=== PATIENT | female | born 1985 | race Caucasian/White ===

== ENCOUNTER 2016-10-04 02:45 | Inpatient (IN) | payer OTHER ==
[2016-10-04] VITALS (15 sets, daily range): BP systolic 99–128; BP diastolic 52–76
[~2016-10-04] VITALS: Ht 149.9 cm; Wt 57.6 kg
[~2016-10-04 02:45] MED LIST: ENDOCET 5-3251 EACH PO; IBUPROFEN800 MG PO; LEVOTHYROXINE88 MCG PO; PRENATAL TABLE1 EACH PO; SYNTHROID88 MCG PO
[2016-10-04 04:19] LABS: EOSINOPHIL (%) 1.7 % (0-5); EOSINOPHIL COUNT 0.1 K/uL (0-0.3); HEMATOCRIT 38.2 % (36.0-46.0); IMMATURE GRANULOCYTE COUNT 0.1 K/uL; INSTRUMENT ABS NEUTROPHIL CT 4.5 K/uL; LYMPHOCYTE COUNT 1.9 K/uL (1.0-2.8); MCH 29.4 PG (29.0-34.0); MCHC 32.7 G/DL (30.0-36.0); MCV 89.9 FL (83-99); MEAN PLAT.VOLUME 10.6 uM^3 (9.5-12.4); MONOCYTE (%) 7.5 % (3-12); MONOCYTE COUNT 0.5 K/uL (0-0.8); NEUTROPHIL (%) 62.5 % (45-76); NEUTROPHIL COUNT 4.5 K/uL (1.8-6.4); PLATELET COUNT 159 K/uL (156-360); RBC DIS.WIDTH-CV 13.2 % (11.8-14.6); RBC DIS.WIDTH-SD 42.6 % (39-53); RED BLOOD COUNT 4.25 M/uL (3.80-5.20); WHITE BLOOD COUNT 7.2 K/uL (4.1-10.2)
[2016-10-04] MEDS ORDERED: IBUPROFEN800 MG PO (11:14)
[2016-10-05 07:30] VITALS: BP 109/69
[2016-10-05 16:34] VITALS: BP 124/83
[2016-10-06] VITALS: BP 105/61
[2016-10-06 07:18] VITALS: BP 106/67
[2016-10-06 15:18] VITALS: BP 110/67
== END 2016-10-06 18:21 | disposition home or self-care (01) | DRG 775 ==
LOC: LDRP-OP 02:45 → 2WEST 02:46 → LDRP-OP 11-28 16:40
PROVIDERS: Advanced Practice Midwife
DX: O60.14X0 Preterm labor third trimester with preterm delivery third trimester, not applicable or unspecified (principal); E03.9 Hypothyroidism, unspecified; O99.824 Streptococcus B carrier state complicating childbirth; Z37.0 Single live birth; Z3A.36 36 weeks gestation of pregnancy; O99.284 Endocrine, nutritional and metabolic diseases complicating childbirth; O70.0 First degree perineal laceration during delivery; O69.2XX0 Labor and delivery complicated by other cord entanglement, with compression, not applicable or unspecified
CPT/HCPCS: 85025; J0702; J2540; J7120

== ENCOUNTER → 2016-10-30 | Outpatient (CLI) | payer OTHER | END | disposition home or self-care (01) | LOC: LAC 13:39 | DX: O92.13 Cracked nipple associated with lactation (principal); O92.79 Other disorders of lactation | CPT/HCPCS: G0463 ==